=== PATIENT | male | born 1945 | race Caucasian/White ===

== ENCOUNTER → 2017-08-12 | Outpatient (CLI) | payer OTHER ==
[2017-08-12 08:33] LABS: HEMATOCRIT 45.8 % (39.2-51.8); HEMOGLOBIN 15.5 g/dL (13.7-18.0); WHITE BLOOD COUNT 9.3 x10^3/uL (3.4-10)
[2017-08-12 08:49] LABS: ASPARTATE AMINO TRANSFERASE 7 U/L (15-37); BLOOD UREA NITROGEN 22 mg/dL (7-18)
== END | disposition home or self-care (01) ==
LOC: LAB 08:21
PROVIDERS: ATTEND Nurse Practitioner Family
DX: E78.5 Hyperlipidemia, unspecified (principal); E11.9 Type 2 diabetes mellitus without complications
CPT/HCPCS: 36415; 80053; 80061; 85025

== ENCOUNTER 2017-10-09 06:07 | Inpatient (IN) | payer OTHER, MEDICARE ==
[~2017-10-09] VITALS: Ht 180.3 cm; Wt 81.9 kg
[2017-10-09] MEDS ORDERED: ALBUTEROL/IPRATROPIUM 2.5MG/0.5MG, 3 ML ONE ×2 (06:26→10:06)
[2017-10-09] MEDS ORDERED: ALBUTEROL/IPRATROPIUM 2.5MG/0.5MG, 3 ML NPPB SCH (06:30)
[2017-10-09] MEDS ORDERED: SODIUM CHLORIDE FLUSH 10ML SYR IVF ONE (06:30)
[2017-10-09] MEDS ORDERED: SODIUM CHLORIDE 0.9% 1,000ML IVBOLUS ONE (06:30)
[2017-10-09] MEDS ORDERED: MAGNESIUM SULFATE PMX 2GM/50ML 50 ML IV ONE (06:30)
[2017-10-09] MEDS ORDERED: methylPREDNISolone SOD SUCC 125 MG/2 ML IVP ONE (06:30)
[2017-10-09] MEDS ORDERED: methylPREDNISolone SOD SUCC 125 MG/2 ML ONE ×2 (06:35→11:47)
[2017-10-09 06:52] LABS: BASOPHILS % (AUTO) 1 % (0-1); EOSINOPHILS # (AUTO) 0.78 x10^3/uL (0-0.4); EOSINOPHILS % (AUTO) 8 % (1-7); LYMPHOCYTES # (AUTO) 2.85 x10^3/uL (1-3.4); LYMPHOCYTES % (AUTO) 28 % (22-44); MD NO; MEAN CORPUSCULAR HEMOGLOBIN 32.5 pg (27.5-34.5); MEAN CORPUSCULAR HGB CONC 33.5 g/dL (33.2-36.2); MEAN PLATELET VOLUME 8.2 fL (7.4-10.4); MONOCYTES % (AUTO) 12 % (2-9); NEUTROPHILS % (AUTO) 51 % (42-75); PLATELET COUNT 316 x10^3/uL (130-400); RED BLOOD COUNT 4.87 x10^6/uL (4.38-5.82); RED CELL DISTRIBUTION WIDTH 14.6 % (9.4-14.8)
[2017-10-09 07:05] LABS: ALBUMIN 3.7 g/dL (3.4-5.0); ANION GAP 8 mmol/L (5-15); CALCIUM 8.2 mg/dL (8.5-10.1); CHLORIDE 109 mmol/L (98-107)
[2017-10-09 07:13] LABS: ALANINE AMINOTRANSFERASE 17 U/L (12-78); ALKALINE PHOSPHATASE 99 U/L (45-117); BILIRUBIN,TOTAL 0.5 mg/dL (0.2-1.0); CREATININE 1.01 mg/dL (0.7-1.3); TOTAL PROTEIN 7.7 g/dL (6.4-8.2); TROPONIN I < 0.015 ng/mL (0.000-0.045)
[2017-10-09] MEDS ORDERED: SITA1TAB5 PO (07:58)
[2017-10-09] MEDS ORDERED: LOSA25TA5 PO (07:58)
[2017-10-09] MEDS ORDERED: TIOT4MIS3 INH (07:58)
[2017-10-09] MEDS ORDERED: CHOL100011 PO (07:58)
[2017-10-09] MEDS ORDERED: BRIM5DRO2 EACHEYE (07:59)
[2017-10-09] MEDS ORDERED: SODIUM CHLORIDE 0.9% 1,000 ML IV SCH (10:18)
[2017-10-09] MEDS ORDERED: DOCUSATE 100 MG CAPSULE PO PRN (10:30)
[2017-10-09] MEDS ORDERED: ONDANSETRON 2MG/ML, 2ML IVPush PRN (10:30)
[2017-10-09] MEDS ORDERED: BISACODYL 10 MG SUPP PR PRN (10:30)
[2017-10-09] MEDS ORDERED: ONDANSETRON ODT 4 MG PO PRN (10:30)
[2017-10-09] MEDS ORDERED: DEXTROSE 4 GM TAB.CHEW PO PRN (10:30)
[2017-10-09] MEDS ORDERED: DEXTROSE 50%, 50ML SYRINGE IVPush PRN (10:30)
[2017-10-09] MEDS ORDERED: IBUPROFEN 200 MG TABLET PO PRN (10:30)
[2017-10-09] MEDS ORDERED: GLUCAGON 1 MG IM PRN (10:30)
[2017-10-09] MEDS ORDERED: POLYETHYLENE GLYCOL 17 GM PACKET PO PRN (10:30)
[2017-10-09] MEDS ORDERED: GUAIFENESIN/DM 200-20MG, 10ML UDC PO PRN (10:30)
[2017-10-09] MEDS: INSULIN ASPART 100 UNITS/ML, PEN SQ-INSULIN SCH ×3 (11:00→20:21)
[2017-10-09] MEDS ORDERED: FAMOTIDINE 20 MG/2 ML ONE (11:48)
[2017-10-09] MEDS ORDERED: ENOXAPARIN 40 MG/0.4 ML ONE (11:48)
[2017-10-09] MEDS: methylPREDNISolone SOD SUCC 125 MG/2 ML IVPush SCH ×3 (11:53→22:31)
[2017-10-09] MEDS: ENOXAPARIN 40 MG/0.4 ML SQ SCH (11:53)
[2017-10-09] MEDS: FAMOTIDINE 20 MG/2 ML IVPush SCH ×2 (11:53→20:20)
[2017-10-09 13:03] VITALS: BP 114/69
[2017-10-09 14:00] VITALS: BP 114/84
[2017-10-09] MEDS: ALBUTEROL/IPRATROPIUM 2.5MG/0.5MG, 3 ML NPPB SCH ×2 (15:00→19:32)
[2017-10-09] MEDS: GUAIFENESIN 200 MG TABLET PO SCH ×3 (15:07→20:20)
[2017-10-09] MEDS: BENZONATATE 100 MG CAPSULE PO SCH ×2 (17:56→20:20)
[2017-10-09 20:20] VITALS: BP 102/58
[2017-10-09] MEDS: SODIUM CHLORIDE FLUSH 10ML SYR IVF SCH (20:20)
[2017-10-09] MEDS ORDERED: DIPHENHYDRAMINE 25 MG CAPSULE PO PRN (21:00)
[2017-10-10 01:13] VITALS: BP 100/53
[2017-10-10] MEDS: methylPREDNISolone SOD SUCC 125 MG/2 ML IVPush SCH ×4 (03:57→22:36)
[2017-10-10 05:52] LABS: ANION GAP 8 mmol/L (5-15); CALCIUM 8.4 mg/dL (8.5-10.1); CHLORIDE 108 mmol/L (98-107); CREATININE 0.77 mg/dL (0.7-1.3)
[2017-10-10] MEDS: GUAIFENESIN 200 MG TABLET PO SCH ×4 (05:57→20:07)
[2017-10-10 06:13] LABS: MEAN CORPUSCULAR HEMOGLOBIN 32.2 pg (27.5-34.5); MEAN CORPUSCULAR HGB CONC 33.1 g/dL (33.2-36.2); MEAN CORPUSCULAR VOLUME 97.2 fL (81-97); MEAN PLATELET VOLUME 8.3 fL (7.4-10.4); PLATELET COUNT 318 x10^3/uL (130-400); RED BLOOD COUNT 4.34 x10^6/uL (4.38-5.82); RED CELL DISTRIBUTION WIDTH 14.6 % (9.4-14.8)
[2017-10-10 06:35] LABS: BASOPHILS % (AUTO) 0 % (0-1); EOSINOPHILS % (AUTO) 0 % (1-7); LYMPHOCYTES # (AUTO) 1.08 x10^3/uL (1-3.4); LYMPHOCYTES % (AUTO) 6 % (22-44); MD SCAN; MONOCYTES # (AUTO) 0.57 x10^3/uL (0.2-0.8); MONOCYTES % (AUTO) 3 % (2-9); NEUTROPHILS # (AUTO) 17.06 x10^3/uL (1.8-6.8); NEUTROPHILS % (AUTO) 91 % (42-75)
[2017-10-10] MEDS: ALBUTEROL/IPRATROPIUM 2.5MG/0.5MG, 3 ML NPPB SCH ×4 (07:50→19:31)
[2017-10-10] MEDS: INSULIN ASPART 100 UNITS/ML, PEN SQ-INSULIN SCH ×4 (07:57→20:07)
[2017-10-10] MEDS: LOSARTAN 25MG TABLET PO SCH (07:57)
[2017-10-10] MEDS: FAMOTIDINE 20 MG/2 ML IVPush SCH (07:57)
[2017-10-10] MEDS: BENZONATATE 100 MG CAPSULE PO SCH ×3 (07:57→20:07)
[2017-10-10] MEDS: SODIUM CHLORIDE FLUSH 10ML SYR IVF SCH ×2 (07:58→20:07)
[2017-10-10 08:30] VITALS: BP 115/58
[2017-10-10] MEDS: ENOXAPARIN 40 MG/0.4 ML SQ SCH (11:16)
[2017-10-10 14:50] LABS: RAPID INFLUENZA A Negative (Negative); RAPID INFLUENZA B Negative (Negative)
[2017-10-10 15:17] VITALS: BP 109/54
[2017-10-10 19:58] VITALS: BP 111/64
[2017-10-10] MEDS: FAMOTIDINE 20 MG TABLET PO SCH (20:07)
[2017-10-11 00:08] LABS: HEMOGLOBIN A1C 6.7 % (4.2-6.3)
[2017-10-11 00:11] VITALS: BP 125/74
[2017-10-11] MEDS: methylPREDNISolone SOD SUCC 125 MG/2 ML IVPush SCH ×2 (04:30→10:29)
[2017-10-11] MEDS: GUAIFENESIN 200 MG TABLET PO SCH ×4 (05:44→21:13)
[2017-10-11] MEDS: ALBUTEROL/IPRATROPIUM 2.5MG/0.5MG, 3 ML NPPB SCH (07:45)
[2017-10-11] MEDS: BENZONATATE 100 MG CAPSULE PO SCH ×3 (08:07→21:13)
[2017-10-11] MEDS: FAMOTIDINE 20 MG TABLET PO SCH ×2 (08:07→21:13)
[2017-10-11] MEDS: SODIUM CHLORIDE FLUSH 10ML SYR IVF SCH ×2 (08:07→21:13)
[2017-10-11] MEDS: LOSARTAN 25MG TABLET PO SCH (08:07)
[2017-10-11] MEDS: INSULIN ASPART 100 UNITS/ML, PEN SQ-INSULIN SCH ×4 (08:08→21:14)
[2017-10-11 08:29] LABS: MEAN CORPUSCULAR HEMOGLOBIN 32.4 pg (27.5-34.5); MEAN CORPUSCULAR HGB CONC 33.7 g/dL (33.2-36.2); MEAN CORPUSCULAR VOLUME 96.1 fL (81-97); MEAN PLATELET VOLUME 7.9 fL (7.4-10.4); PLATELET COUNT 336 x10^3/uL (130-400); RED BLOOD COUNT 4.76 x10^6/uL (4.38-5.82); RED CELL DISTRIBUTION WIDTH 14.6 % (9.4-14.8)
[2017-10-11 08:46] LABS: MD YES
[2017-10-11 08:47] LABS: BAND#(MANUAL) 1.37 x10^3/uL; BANDS%(MANUAL) 5 % (0-7); LYMPH#(MANUAL) 0.82 x10^3/uL (1-3.4); LYMPHS% (MANUAL) 3 % (22-44); MONOS#(MANUAL) 0.55 x10^3/uL (0.3-2.7); MONOS% (MANUAL) 2 % (2-9); SEG#(MANUAL) 24.57 x10^3/uL (1.8-6.8); SEGS% (MANUAL) 90 % (42-75)
[2017-10-11 08:48] LABS: <PLATELET ESTIMATE> ADEQUATE; <PLT MORPHOLOGY> NORMAL PLT MORPH; <RBC MORPHOLOGY> NORMAL
[2017-10-11 09:16] VITALS: BP 145/68
[2017-10-11] MEDS ORDERED: OMNIPAQUE 350 MG/ML, 100ML BOTTLE ONE (10:19)
[2017-10-11] MEDS: ENOXAPARIN 40 MG/0.4 ML SQ SCH (10:29)
[2017-10-11] MEDS ORDERED: ALBUTEROL/IPRATROPIUM 2.5MG/0.5MG, 3 ML ONE (11:03)
[2017-10-11 14:00] VITALS: BP 131/78
[2017-10-11 19:22] VITALS: BP 132/57
[2017-10-11] MEDS: DOXYCYCLINE 100MG TABLET PO SCH (21:13)
[2017-10-11] MEDS: CEFDINIR 300 MG CAPSULE PO SCH (21:13)
[2017-10-11] MEDS: methylPREDNISolone SOD SUCC 40 MG/ML IVPush SCH (21:13)
[2017-10-12 02:00] VITALS: BP 140/70
[2017-10-12 05:13] LABS: BASOPHILS # (AUTO) 0.01 x10^3/uL (0-0.1); BASOPHILS % (AUTO) 0 % (0-1); EOSINOPHILS % (AUTO) 0 % (1-7); LYMPHOCYTES % (AUTO) 5 % (22-44); MD NO; MEAN CORPUSCULAR HEMOGLOBIN 32.5 pg (27.5-34.5); MEAN CORPUSCULAR HGB CONC 33.5 g/dL (33.2-36.2); MEAN CORPUSCULAR VOLUME 97.1 fL (81-97); MONOCYTES # (AUTO) 0.92 x10^3/uL (0.2-0.8); MONOCYTES % (AUTO) 5 % (2-9); NEUTROPHILS # (AUTO) 15.36 x10^3/uL (1.8-6.8); NEUTROPHILS % (AUTO) 89 % (42-75); PLATELET COUNT 281 x10^3/uL (130-400); RED BLOOD COUNT 4.21 x10^6/uL (4.38-5.82); RED CELL DISTRIBUTION WIDTH 14.6 % (9.4-14.8)
[2017-10-12] MEDS: GUAIFENESIN 200 MG TABLET PO SCH (05:50)
[2017-10-12] MEDS ORDERED: ALBUTEROL/IPRATROPIUM 2.5MG/0.5MG, 3 ML NPPB PRN (07:00)
[2017-10-12] MEDS: INSULIN ASPART 100 UNITS/ML, PEN SQ-INSULIN SCH (07:00)
[2017-10-12] MEDS ORDERED: ALBU90AE PO (07:44)
[2017-10-12] MEDS ORDERED: CEFD300C37 PO (07:44)
[2017-10-12] MEDS ORDERED: DOXY100T PO (07:44)
[2017-10-12 07:46] VITALS: BP 151/80
[2017-10-12] MEDS: DOXYCYCLINE 100MG TABLET PO SCH (08:01)
[2017-10-12] MEDS: LOSARTAN 25MG TABLET PO SCH (08:01)
[2017-10-12] MEDS: FAMOTIDINE 20 MG TABLET PO SCH (08:01)
[2017-10-12] MEDS: CEFDINIR 300 MG CAPSULE PO SCH (08:01)
[2017-10-12] MEDS: methylPREDNISolone SOD SUCC 40 MG/ML IVPush SCH (08:01)
[2017-10-12] MEDS: BENZONATATE 100 MG CAPSULE PO SCH (08:01)
[2017-10-12] MEDS: SODIUM CHLORIDE FLUSH 10ML SYR IVF SCH (08:02)
== END 2017-10-12 09:56 | disposition home or self-care (01) | DRG 189 ==
LOC: ED 07:14 → EDIP 08:33 → 4WST 12:46 → DCLOUNGE 10-12 09:45
PROVIDERS: ADMIT Hospitalist; ATTEND Hospitalist
DX: J96.01 Acute respiratory failure with hypoxia (principal); E11.65 Type 2 diabetes mellitus with hyperglycemia; E87.2 Acidosis; B95.61 Methicillin susceptible Staphylococcus aureus infection as the cause of diseases classified elsewhere; J44.1 Chronic obstructive pulmonary disease with (acute) exacerbation; D72.829 Elevated white blood cell count, unspecified; F17.200 Nicotine dependence, unspecified, uncomplicated; H40.9 Unspecified glaucoma; F41.9 Anxiety disorder, unspecified; B95.1 Streptococcus, group B, as the cause of diseases classified elsewhere; B96.89 Other specified bacterial agents as the cause of diseases classified elsewhere; Z66 Do not resuscitate; Z82.5 Family history of asthma and other chronic lower respiratory diseases; Z79.84 Long term (current) use of oral hypoglycemic drugs; Z91.040 Latex allergy status
CPT/HCPCS: 36415; 71045; 71046; 71275; 80048; 80053; 82330; 82962; 83036; 83735; 83880; 84484; 85025; 87040; 87070; 87077; 87186; 87205; 87400; 93005; 94640; J1650; J1815; J7620; Q9967; J2920; J2930; J3475; J7030; S0028

== ENCOUNTER → 2018-02-18 | Outpatient (CLI) | payer OTHER ==
[~2018-02-18] MED LIST: ALBU90AE PO; BRIM5DRO2 EACHEYE; CEFD300C37 PO; CHOL100011 PO; DOXY100T PO; LOSA25TA5 PO; SITA1TAB5 PO; TIOT4MIS3 INH
[2018-02-18 09:25] LABS: BASOPHILS # (AUTO) 0.06 x10^3/uL (0-0.1); BASOPHILS % (AUTO) 1 % (0-1); EOSINOPHILS # (AUTO) 0.61 x10^3/uL (0-0.4); EOSINOPHILS % (AUTO) 6 % (1-7); LYMPHOCYTES # (AUTO) 2.29 x10^3/uL (1-3.4); LYMPHOCYTES % (AUTO) 23 % (22-44); MD NO; MEAN CORPUSCULAR HEMOGLOBIN 32.2 pg (27.5-34.5); MEAN CORPUSCULAR HGB CONC 33.9 g/dL (33.2-36.2); MEAN PLATELET VOLUME 7.7 fL (7.4-10.4); MONOCYTES # (AUTO) 1.12 x10^3/uL (0.2-0.8); MONOCYTES % (AUTO) 11 % (2-9); NEUTROPHILS # (AUTO) 5.83 x10^3/uL (1.8-6.8); NEUTROPHILS % (AUTO) 59 % (42-75); PLATELET COUNT 313 x10^3/uL (130-400); RED BLOOD COUNT 4.73 x10^6/uL (4.38-5.82); RED CELL DISTRIBUTION WIDTH 13.7 % (9.4-14.8)
[2018-02-18 09:37] LABS: ALANINE AMINOTRANSFERASE 23 U/L (12-78); ALBUMIN 3.6 g/dL (3.4-5.0); ANION GAP 6 mmol/L (5-15); CALCIUM 8.3 mg/dL (8.5-10.1); CHLORIDE 109 mmol/L (98-107); CREATININE 0.89 mg/dL (0.7-1.3)
[2018-02-18 09:42] LABS: ALKALINE PHOSPHATASE 81 U/L (45-117); BILIRUBIN,TOTAL 0.3 mg/dL (0.2-1.0); TOTAL PROTEIN 7.2 g/dL (6.4-8.2)
== END | disposition home or self-care (01) ==
LOC: LAB 09:10
PROVIDERS: ATTEND Nurse Practitioner Family
DX: J44.1 Chronic obstructive pulmonary disease with (acute) exacerbation (principal)
CPT/HCPCS: 36415; 71046; 80053; 83880; 85025

== ENCOUNTER 2018-04-14 21:02 | Emergency (ER) | payer OTHER ==
[~2018-04-14] VITALS: Ht 180.3 cm; Wt 79.0 kg
[2018-04-14] MEDS ORDERED: methylPREDNISolone SOD SUCC 125 MG/2 ML ONE (21:34)
[2018-04-14] MEDS ORDERED: SODIUM CHLORIDE 0.9% 1,000 ML IV ONE (21:37)
[2018-04-14] MEDS ORDERED: SODIUM CHLORIDE FLUSH 10ML SYR IVF ONE (22:00)
[2018-04-14] MEDS ORDERED: methylPREDNISolone SOD SUCC 125 MG/2 ML IVP ONE (22:00)
[2018-04-14 22:07] LABS: BASOPHILS # (AUTO) 0.08 x10^3/uL (0-0.1); BASOPHILS % (AUTO) 1 % (0-1); EOSINOPHILS # (AUTO) 0.91 x10^3/uL (0-0.4); EOSINOPHILS % (AUTO) 8 % (1-7); LYMPHOCYTES # (AUTO) 2.77 x10^3/uL (1-3.4); LYMPHOCYTES % (AUTO) 23 % (22-44); MD NO; MEAN CORPUSCULAR HEMOGLOBIN 32.3 pg (27.5-34.5); MEAN CORPUSCULAR HGB CONC 33.7 g/dL (33.2-36.2); MEAN CORPUSCULAR VOLUME 95.9 fL (81-97); MEAN PLATELET VOLUME 8.1 fL (7.4-10.4); MONOCYTES # (AUTO) 1.29 x10^3/uL (0.2-0.8); MONOCYTES % (AUTO) 11 % (2-9); NEUTROPHILS % (AUTO) 58 % (42-75); PLATELET COUNT 309 x10^3/uL (130-400); RED CELL DISTRIBUTION WIDTH 14.9 % (9.4-14.8)
[2018-04-14 22:18] LABS: ALBUMIN 3.9 g/dL (3.4-5.0); ANION GAP 7 mmol/L (5-15); CALCIUM 8.8 mg/dL (8.5-10.1); CHLORIDE 111 mmol/L (98-107); CREATININE 1.32 mg/dL (0.7-1.3)
[2018-04-14 22:22] LABS: TROPONIN I < 0.015 ng/mL (0.000-0.045)
[2018-04-14 22:30] VITALS: BP 113/80
[2018-04-14] MEDS ORDERED: BENZONATATE 100 MG CAPSULE ONE (22:41)
[2018-04-14] MEDS ORDERED: BENZONATATE 100 MG CAPSULE PO ONE (23:00)
== END 2018-04-14 23:13 | disposition home or self-care (01) ==
LOC: ED 22:45
DX: J44.1 Chronic obstructive pulmonary disease with (acute) exacerbation (principal)
CPT/HCPCS: 36415; 71045; 80048; 82040; 83880; 84484; 85025; 93005; 94640; 96374; 99285; J2930; J7030

== ENCOUNTER 2018-05-14 17:38 | Inpatient (IN) | payer OTHER, MEDICARE ==
[~2018-05-14] VITALS: Ht 180.3 cm; Wt 78.4 kg
[2018-05-14 18:20] LABS: MEAN CORPUSCULAR HEMOGLOBIN 33.4 pg (27.5-34.5); MEAN CORPUSCULAR HGB CONC 34.9 g/dL (33.2-36.2); MEAN CORPUSCULAR VOLUME 95.8 fL (81-97); MEAN PLATELET VOLUME 9.1 fL (7.4-10.4); PLATELET COUNT 320 x10^3/uL (130-400); RED BLOOD COUNT 4.23 x10^6/uL (4.38-5.82); RED CELL DISTRIBUTION WIDTH 15.7 % (9.4-14.8)
[2018-05-14 18:27] LABS: MD YES
[2018-05-14 18:30] LABS: ALBUMIN 3.2 g/dL (3.4-5.0); ANION GAP 11 mmol/L (5-15); CALCIUM 8.9 mg/dL (8.5-10.1); CHLORIDE 105 mmol/L (98-107)
[2018-05-14 18:35] LABS: ALANINE AMINOTRANSFERASE 371 U/L (12-78); ALKALINE PHOSPHATASE 456 U/L (45-117); BILIRUBIN,TOTAL 11.8 mg/dL (0.2-1.0); CREATININE 1.51 mg/dL (0.7-1.3); TOTAL PROTEIN 7.2 g/dL (6.4-8.2); TROPONIN I < 0.015 ng/mL (0.000-0.045)
[2018-05-14 18:48] LABS: BASOS#(MANUAL) 0.09 x10^3/uL (0-0.1); BASOS% (MANUAL) 1 % (0-1); EOS#(MANUAL) 0.09 x10^3/uL (0.0-0.4); EOS% (MANUAL) 1 % (1-7); LYMPH#(MANUAL) 1.51 x10^3/uL (1-3.4); LYMPHS% (MANUAL) 17 % (22-44); MONOS#(MANUAL) 1.07 x10^3/uL (0.3-2.7); MONOS% (MANUAL) 12 % (2-9); SEG#(MANUAL) 6.14 x10^3/uL (1.8-6.8); SEGS% (MANUAL) 69 % (42-75)
[2018-05-14 18:51] LABS: <PLATELET ESTIMATE> ADEQUATE; <PLT MORPHOLOGY> NORMAL PLT MORPH; ANISOCYTOSIS 1+; TARGET CELLS 1+
[2018-05-14] MEDS ORDERED: SODIUM CHLORIDE FLUSH 10ML SYR IVF ONE (19:00)
[2018-05-14] MEDS ORDERED: SODIUM CHLORIDE 0.9% 1,000ML IVBOLUS ONE (19:00)
[2018-05-14 19:10] LABS: INTERNATIONAL NORMALIZED RATIO 0.97 (0.93-1.1)
[2018-05-14 19:33] LABS: CULTURE INDICATED? YES; MICROSCOPIC INDICATED
[2018-05-14] MEDS ORDERED: GLYC10.7 INH (20:32)
[2018-05-14] MEDS: INSULIN LISPRO 100 UNITS/ML, PEN SQ-INSULIN SCH (21:00)
[2018-05-14 21:08] LABS: AMPHETAMINE SCREEN, URINE Negative (Negative); BARBITURATE SCREEN, URINE Negative (Negative); BENZODIAZEPINE SCREEN, URINE Negative (Negative); CANNABINOID SCREEN, URINE Negative (Negative); COCAINE SCREEN, URINE Negative (Negative); METHADONE SCREEN, URINE Negative (Negative); OPIATE SCREEN, URINE Negative (Negative)
[2018-05-14] MEDS ORDERED: ONDANSETRON 2MG/ML, 2ML IVPush PRN (21:30)
[2018-05-14] MEDS ORDERED: OXYcodone IR 5MG TABLET PO PRN (21:30)
[2018-05-14] MEDS ORDERED: DIAZEPAM 5 MG TABLET PO PRN (21:30)
[2018-05-14] MEDS ORDERED: hydrALAzine 20 MG/ML, 1ML IVPush PRN (21:30)
[2018-05-14] MEDS ORDERED: CEFTRIAXONE 1,000 MG in DEXTROSE 5% 50 ML IV SCH (21:30)
[2018-05-14] MEDS ORDERED: LABETALOL 5MG/ML, 20ML IVPush PRN (21:30)
[2018-05-14] MEDS ORDERED: ONDANSETRON ODT 4 MG PO PRN (21:30)
[2018-05-14 21:36] LABS: HEMOGLOBIN A1C 6.9 % (4.2-6.3)
[2018-05-14 21:51] VITALS: BP 126/62
[2018-05-14] MEDS: ALBUTEROL/IPRATROPIUM 2.5MG/0.5MG, 3 ML NPPB SCH (22:49)
[2018-05-15] MEDS: D5%-0.45NACL+KCL 20MEQ 1,000 ML IV SCH ×2 (02:21→12:07)
[2018-05-15] MEDS: CEFTRIAXONE 1,000 MG in SODIUM CHLORIDE 0.9% 50 ML IV SCH (02:21)
[2018-05-15] MEDS: ENOXAPARIN 40 MG/0.4 ML SQ SCH (02:21)
[2018-05-15 02:22] VITALS: BP 131/68
[2018-05-15] MEDS: ALBUTEROL/IPRATROPIUM 2.5MG/0.5MG, 3 ML NPPB SCH ×6 (03:14→23:06)
[2018-05-15 05:19] LABS: MEAN CORPUSCULAR HEMOGLOBIN 33.4 pg (27.5-34.5); MEAN CORPUSCULAR HGB CONC 34.6 g/dL (33.2-36.2); MEAN CORPUSCULAR VOLUME 96.5 fL (81-97); MEAN PLATELET VOLUME 9.6 fL (7.4-10.4); PLATELET COUNT 283 x10^3/uL (130-400); RED BLOOD COUNT 3.94 x10^6/uL (4.38-5.82); RED CELL DISTRIBUTION WIDTH 16.3 % (9.4-14.8)
[2018-05-15 05:30] LABS: ALBUMIN 2.9 g/dL (3.4-5.0); CALCIUM 8.3 mg/dL (8.5-10.1); CHLORIDE 106 mmol/L (98-107)
[2018-05-15 05:34] LABS: ALANINE AMINOTRANSFERASE 323 U/L (12-78); ALKALINE PHOSPHATASE 440 U/L (45-117); ANION GAP 11 mmol/L (5-15); BILIRUBIN,TOTAL 11.8 mg/dL (0.2-1.0); CREATININE 0.98 mg/dL (0.7-1.3); TOTAL PROTEIN 6.5 g/dL (6.4-8.2)
[2018-05-15 06:20] LABS: MD YES
[2018-05-15 06:23] LABS: ANISOCYTOSIS 1+; BAND#(MANUAL) 0.27 x10^3/uL; BANDS%(MANUAL) 3 % (0-7); BASOS#(MANUAL) 0.27 x10^3/uL (0-0.1); BASOS% (MANUAL) 3 % (0-1); EOS#(MANUAL) 0.27 x10^3/uL (0.0-0.4); EOS% (MANUAL) 3 % (1-7); HYPOCHROMIA 1+; LYMPH#(MANUAL) 1.62 x10^3/uL (1-3.4); LYMPHS% (MANUAL) 18 % (22-44); MONOS% (MANUAL) 10 % (2-9); SEG#(MANUAL) 5.67 x10^3/uL (1.8-6.8); SEGS% (MANUAL) 63 % (42-75); TARGET CELLS 1+
[2018-05-15 06:25] LABS: <PLATELET ESTIMATE> ADEQUATE; <PLT MORPHOLOGY> NORMAL PLT MORPH; TEAR DROPS 1+
[2018-05-15] MEDS: CHOLECALCIFEROL 1,000 UNIT TABLET PO SCH (08:39)
[2018-05-15 09:02] VITALS: BP 122/71
[2018-05-15] MEDS: INSULIN LISPRO 100 UNITS/ML, PEN SQ-INSULIN SCH ×4 (09:14→20:02)
[2018-05-15] MEDS ORDERED: POTASSIUM CHLORIDE 20 MEQ TAB.ER.PRT PO ONE (12:00)
[2018-05-15 13:25] VITALS: BP 132/69
[2018-05-15 19:10] VITALS: BP 155/76
[2018-05-15] MEDS ORDERED: ALBUTEROL/IPRATROPIUM 2.5MG/0.5MG, 3 ML NPPB PRN (23:30)
[2018-05-16] MEDS: ENOXAPARIN 40 MG/0.4 ML SQ SCH (02:50)
[2018-05-16] MEDS: CEFTRIAXONE 1,000 MG in SODIUM CHLORIDE 0.9% 50 ML IV SCH (02:50)
[2018-05-16 03:41] VITALS: BP 134/76
[2018-05-16] MEDS: D5%-0.45NACL+KCL 20MEQ 1,000 ML IV SCH (06:03)
[2018-05-16] MEDS: INSULIN LISPRO 100 UNITS/ML, PEN SQ-INSULIN SCH ×4 (07:00→21:35)
[2018-05-16] MEDS: ALBUTEROL/IPRATROPIUM 2.5MG/0.5MG, 3 ML NPPB SCH ×4 (07:11→19:58)
[2018-05-16 08:15] VITALS: BP 109/67
[2018-05-16] MEDS: TIMOLOL GFS 0.5% EACHEYE SCH (08:33)
[2018-05-16 08:34] LABS: ANION GAP 9 mmol/L (5-15); CALCIUM 8.9 mg/dL (8.5-10.1); CHLORIDE 105 mmol/L (98-107)
[2018-05-16] MEDS: CHOLECALCIFEROL 1,000 UNIT TABLET PO SCH (08:35)
[2018-05-16 08:38] LABS: ALANINE AMINOTRANSFERASE 335 U/L (12-78); ALKALINE PHOSPHATASE 478 U/L (45-117); BILIRUBIN,TOTAL 11.9 mg/dL (0.2-1.0); CREATININE 0.92 mg/dL (0.7-1.3); TOTAL PROTEIN 6.9 g/dL (6.4-8.2)
[2018-05-16] MEDS ORDERED: TIMOLOL GFS 0.5% EACHEYE SCH (09:00)
[2018-05-16] MEDS ORDERED: LATANOPROST OPTHALMIC EACHEYE SCH (09:00)
[2018-05-16] MEDS ORDERED: CHOLESTYRAMINE LIGHT 4GM PACKET ONE (11:56)
[2018-05-16] MEDS: CHOLESTYRAMINE LIGHT 4GM PACKET PO SCH (11:59)
[2018-05-16] MEDS: SODIUM CHLORIDE 0.9% 1,000 ML IV SCH (12:36)
[2018-05-16 14:00] VITALS: BP 128/73
[2018-05-16] MEDS ORDERED: LOSA25TA5 PO (18:41)
[2018-05-16 19:26] VITALS: BP 138/71
[2018-05-16] MEDS: LATANOPROST OPTHALMIC EACHEYE SCH (21:35)
[2018-05-17] MEDS: SODIUM CHLORIDE 0.9% 1,000 ML IV SCH ×2 (01:52→21:15)
[2018-05-17] MEDS: CEFTRIAXONE 1,000 MG in SODIUM CHLORIDE 0.9% 50 ML IV SCH (01:53)
[2018-05-17 02:40] VITALS: BP 122/74
[2018-05-17] MEDS: ALBUTEROL/IPRATROPIUM 2.5MG/0.5MG, 3 ML NPPB SCH ×5 (03:15→19:36)
[2018-05-17 05:34] LABS: ALBUMIN 2.9 g/dL (3.4-5.0); ANION GAP 8 mmol/L (5-15); CALCIUM 8.7 mg/dL (8.5-10.1); CHLORIDE 105 mmol/L (98-107)
[2018-05-17 05:39] LABS: ALANINE AMINOTRANSFERASE 314 U/L (12-78); ALKALINE PHOSPHATASE 487 U/L (45-117); BILIRUBIN,TOTAL 12.8 mg/dL (0.2-1.0); CREATININE 0.92 mg/dL (0.7-1.3); TOTAL PROTEIN 6.5 g/dL (6.4-8.2)
[2018-05-17 05:40] LABS: MEAN CORPUSCULAR HEMOGLOBIN 33.5 pg (27.5-34.5); MEAN CORPUSCULAR HGB CONC 34.1 g/dL (33.2-36.2); MEAN CORPUSCULAR VOLUME 98.1 fL (81-97); MEAN PLATELET VOLUME 9.7 fL (7.4-10.4); PLATELET COUNT 322 x10^3/uL (130-400); RED BLOOD COUNT 3.78 x10^6/uL (4.38-5.82)
[2018-05-17 06:07] LABS: MD YES
[2018-05-17 06:10] LABS: BAND#(MANUAL) 0.33 x10^3/uL; BANDS%(MANUAL) 4 % (0-7); BASOS#(MANUAL) 0.25 x10^3/uL (0-0.1); BASOS% (MANUAL) 3 % (0-1); EOS#(MANUAL) 0.66 x10^3/uL (0.0-0.4); EOS% (MANUAL) 8 % (1-7); LYMPH#(MANUAL) 1.08 x10^3/uL (1-3.4); LYMPHS% (MANUAL) 13 % (22-44); MONOS#(MANUAL) 0.83 x10^3/uL (0.3-2.7); MONOS% (MANUAL) 10 % (2-9); SEG#(MANUAL) 5.15 x10^3/uL (1.8-6.8); SEGS% (MANUAL) 62 % (42-75)
[2018-05-17 06:15] LABS: <PLATELET ESTIMATE> ADEQUATE; <PLT MORPHOLOGY> NORMAL PLT MORPH; ANISOCYTOSIS 1+; TARGET CELLS 1+
[2018-05-17 06:54] VITALS: BP 130/69
[2018-05-17] MEDS: INSULIN LISPRO 100 UNITS/ML, PEN SQ-INSULIN SCH ×4 (07:00→21:15)
[2018-05-17 07:41] LABS: INTERNATIONAL NORMALIZED RATIO 0.97 (0.93-1.1)
[2018-05-17] MEDS: TIMOLOL GFS 0.5% EACHEYE SCH (08:33)
[2018-05-17] MEDS: LOSARTAN 25MG TABLET PO SCH (09:00)
[2018-05-17] MEDS ORDERED: LIDOCAINE-MPF 2%, 2ML ONE (10:14)
[2018-05-17] MEDS ORDERED: DIPHENOXYLATE/ATROPINE TABLET PO PRN (11:30)
[2018-05-17] MEDS: CHOLECALCIFEROL 1,000 UNIT TABLET PO SCH (11:38)
[2018-05-17] MEDS: CHOLESTYRAMINE LIGHT 4GM PACKET PO SCH (11:38)
[2018-05-17 12:11] VITALS: BP 121/65
[2018-05-17 19:24] VITALS: BP 131/79
[2018-05-17] MEDS: LATANOPROST OPTHALMIC EACHEYE SCH (21:00)
[2018-05-18 01:30] VITALS: BP 153/83
[2018-05-18] MEDS: ALBUTEROL/IPRATROPIUM 2.5MG/0.5MG, 3 ML NPPB SCH ×2 (05:48→10:11)
[2018-05-18 07:15] VITALS: BP 101/60
[2018-05-18] MEDS: INSULIN LISPRO 100 UNITS/ML, PEN SQ-INSULIN SCH ×2 (07:45→11:00)
[2018-05-18] MEDS: TIMOLOL GFS 0.5% EACHEYE SCH (07:45)
[2018-05-18] MEDS: LOSARTAN 25MG TABLET PO SCH (07:46)
[2018-05-18] MEDS: CHOLESTYRAMINE LIGHT 4GM PACKET PO SCH (07:46)
[2018-05-18] MEDS: CHOLECALCIFEROL 1,000 UNIT TABLET PO SCH (07:46)
[2018-05-18 09:37] LABS: ALANINE AMINOTRANSFERASE 308 U/L (12-78); ALBUMIN 2.8 g/dL (3.4-5.0); ANION GAP 10 mmol/L (5-15); CALCIUM 8.7 mg/dL (8.5-10.1); CHLORIDE 102 mmol/L (98-107); CREATININE 0.92 mg/dL (0.7-1.3)
[2018-05-18 09:39] LABS: ALKALINE PHOSPHATASE 507 U/L (45-117); BILIRUBIN,TOTAL 13.3 mg/dL (0.2-1.0); TOTAL PROTEIN 6.6 g/dL (6.4-8.2)
[2018-05-18] MEDS ORDERED: INSU100I11 SQ-INSULIN (11:21)
[2018-05-18] MEDS ORDERED: CHOL239. PO (11:21)
[2018-05-18 14:47] LABS: ANA SCREEN NEGATIVE (Negative)
== END 2018-05-18 12:16 | disposition home or self-care (01) | DRG 441 ==
LOC: ED 20:45 → 3NE 21:30
PROVIDERS: ADMIT Internal Medicine; ATTEND Internal Medicine
PROC: 0FB03ZX Excision of Liver, Percutaneous Approach, Diagnostic (ICD-10-PCS; principal; 2018-05-17)
DX: K75.89 Other specified inflammatory liver diseases (principal); N17.0 Acute kidney failure with tubular necrosis; E87.2 Acidosis; E87.1 Hypo-osmolality and hyponatremia; E44.1 Mild protein-calorie malnutrition; Q45.3 Other congenital malformations of pancreas and pancreatic duct; N28.1 Cyst of kidney, acquired; J44.9 Chronic obstructive pulmonary disease, unspecified; E86.0 Dehydration; R82.71 Bacteriuria; E11.65 Type 2 diabetes mellitus with hyperglycemia; Z66 Do not resuscitate; L29.9 Pruritus, unspecified; D72.1 Eosinophilia; K83.9 Disease of biliary tract, unspecified; T50.905A Adverse effect of unspecified drugs, medicaments and biological substances, initial encounter; Z87.891 Personal history of nicotine dependence; Z79.84 Long term (current) use of oral hypoglycemic drugs; Z82.5 Family history of asthma and other chronic lower respiratory diseases; Z91.040 Latex allergy status; Z87.09 Personal history of other diseases of the respiratory system; Y92.89 Other specified places as the place of occurrence of the external cause; Z68.24 Body mass index [BMI] 24.0-24.9, adult
CPT/HCPCS: 36415; 99285; J7620; 47000; 71045; 74181; 76700; 76942; 78226; 80053; 80074; 80307; 81001; 82248; 82728; 82784; 82962; 82977; 83036; 83516; 83540; 83550; 83690; 83735; 84100; 84466; 84484; 85025; 85610; 86038; 86255; 87086; 88307; 88313; 93005; 94640; J0696; J1650; J2250; J3010; J3490; A9537; C9898; J1815; J3480; J7030

== ENCOUNTER → 2018-05-20 | Outpatient (CLI) | payer OTHER ==
[~2018-05-20] MED LIST changes: +CHOL239. PO; +FENTANYL PF 100 MCG/2ML ONE; +FLUMAZENIL 0.1 MG/1 ML, 5ML ONE; +GLYC10.7 INH; +INSU100I11 SQ-INSULIN; +MIDAZOLAM 1 MG/ML, 5ML ONE; +NALOXONE 1 MG/ML, 2ML ONE
== END | disposition home or self-care (01) ==
LOC: CARD 12:40
PROVIDERS: ATTEND Internal Medicine Critical Care Medicine
DX: J43.2 Centrilobular emphysema (principal); E11.9 Type 2 diabetes mellitus without complications
CPT/HCPCS: 94060; 94618; 94726; 94729; J2250; J3010; J2310

== ENCOUNTER → 2018-06-25 | Outpatient (CLI) | payer OTHER ==
[~2018-06-25] MED LIST changes: -FENTANYL PF 100 MCG/2ML ONE; -FLUMAZENIL 0.1 MG/1 ML, 5ML ONE; -LOSA25TA5 PO; +LOSA25TA6 PO; -MIDAZOLAM 1 MG/ML, 5ML ONE; -NALOXONE 1 MG/ML, 2ML ONE
[2018-06-25 07:42] LABS: ALBUMIN 3.6 g/dL (3.4-5.0); BILIRUBIN, DIRECT 0.7 mg/dL (0.1-0.2)
[2018-06-25 07:44] LABS: BILIRUBIN,INDIRECT 0.2 mg/dL (0.0-2.0); BILIRUBIN,TOTAL 0.9 mg/dL (0.2-1.0); TOTAL PROTEIN 7.3 g/dL (6.4-8.2)
== END | disposition home or self-care (01) ==
LOC: LAB 07:16
PROVIDERS: ATTEND Internal Medicine Gastroenterology
DX: R94.5 Abnormal results of liver function studies (principal); R13.14 Dysphagia, pharyngoesophageal phase; E11.9 Type 2 diabetes mellitus without complications; Z87.891 Personal history of nicotine dependence
CPT/HCPCS: 36415; 80076

== ENCOUNTER 2018-06-27 12:22 | Emergency (ER) | payer OTHER ==
[~2018-06-27] VITALS: Ht 180.3 cm; Wt 76.0 kg
[2018-06-27 12:29] VITALS: BP 113/63
[2018-06-27] MEDS ORDERED: DEXAMETHASONE 4 MG/ML, 1ML IM ONE (13:00)
[2018-06-27] MEDS ORDERED: ALBUTEROL SULFATE 2.5 MG/3 ML NPPB ONE (13:00)
[2018-06-27] MEDS ORDERED: DEXAMETHASONE 4 MG/ML, 1ML ONE (13:08)
[2018-06-27] MEDS ORDERED: ALBUTEROL SULFATE 2.5 MG/3 ML ONE (13:08)
== END 2018-06-27 13:52 | disposition home or self-care (01) ==
LOC: ED 12:56
DX: J44.1 Chronic obstructive pulmonary disease with (acute) exacerbation (principal); E11.9 Type 2 diabetes mellitus without complications
CPT/HCPCS: 71045; 93005; 94640; 96372; 99284; J1100; J7613

== ENCOUNTER → 2018-07-27 | Outpatient (CLI) | payer OTHER ==
[2018-07-27 08:03] LABS: ALBUMIN 3.7 g/dL (3.4-5.0); BILIRUBIN, DIRECT 0.2 mg/dL (0.1-0.2)
[2018-07-27 08:06] LABS: BILIRUBIN,INDIRECT 0.1 mg/dL (0.0-2.0); BILIRUBIN,TOTAL 0.3 mg/dL (0.2-1.0); TOTAL PROTEIN 7.2 g/dL (6.4-8.2)
== END | disposition home or self-care (01) ==
LOC: LAB 07:31
PROVIDERS: ATTEND Internal Medicine Gastroenterology
DX: R94.5 Abnormal results of liver function studies (principal); R13.14 Dysphagia, pharyngoesophageal phase; R13.19 Other dysphagia
CPT/HCPCS: 36415; 80076

== ENCOUNTER 2018-08-26 12:24 | Emergency (ER) | payer OTHER ==
[~2018-08-26] VITALS: Ht 180.3 cm; Wt 78.3 kg
[2018-08-26 12:48] LABS: BASOPHILS # (AUTO) 0.05 x10^3/uL (0-0.1); BASOPHILS % (AUTO) 0 % (0-1); EOSINOPHILS % (AUTO) 5 % (1-7); LYMPHOCYTES # (AUTO) 2.09 x10^3/uL (1-3.4); LYMPHOCYTES % (AUTO) 17 % (22-44); MD NO; MEAN CORPUSCULAR HEMOGLOBIN 33.7 pg (27.5-34.5); MEAN CORPUSCULAR HGB CONC 33.7 g/dL (33.2-36.2); MEAN CORPUSCULAR VOLUME 99.9 fL (81-97); MEAN PLATELET VOLUME 7.9 fL (7.4-10.4); MONOCYTES # (AUTO) 1.43 x10^3/uL (0.2-0.8); MONOCYTES % (AUTO) 12 % (2-9); NEUTROPHILS # (AUTO) 8.05 x10^3/uL (1.8-6.8); NEUTROPHILS % (AUTO) 66 % (42-75); PLATELET COUNT 315 x10^3/uL (130-400); RED BLOOD COUNT 4.67 x10^6/uL (4.38-5.82); RED CELL DISTRIBUTION WIDTH 12.7 % (9.4-14.8)
[2018-08-26] MEDS ORDERED: ALBUTEROL/IPRATROPIUM 2.5MG/0.5MG, 3 ML ONE (12:51)
[2018-08-26] MEDS: ALBUTEROL/IPRATROPIUM 2.5MG/0.5MG, 3 ML NPPB SCH (12:53)
[2018-08-26 13:00] LABS: ALBUMIN 3.8 g/dL (3.4-5.0); ANION GAP 9 mmol/L (5-15); CALCIUM 8.8 mg/dL (8.5-10.1); CHLORIDE 109 mmol/L (98-107); CREATININE 1.03 mg/dL (0.7-1.3)
[2018-08-26 14:21] VITALS: BP 103/64
== END 2018-08-26 14:22 | disposition home or self-care (01) ==
LOC: ED 12:55
DX: J44.1 Chronic obstructive pulmonary disease with (acute) exacerbation (principal); J02.0 Streptococcal pharyngitis; B95.5 Unspecified streptococcus as the cause of diseases classified elsewhere; J45.909 Unspecified asthma, uncomplicated; E11.9 Type 2 diabetes mellitus without complications; Z79.899 Other long term (current) drug therapy; Z91.040 Latex allergy status
CPT/HCPCS: 36415; 71046; 80048; 82040; 83605; 85025; 93005; 94640; 99284; J7512; J7620

== ENCOUNTER → 2019-08-04 | Outpatient (CLI) | payer OTHER ==
[~2019-08-04] MED LIST changes: +LOSA25TA25 PO; -LOSA25TA6 PO
[2019-08-04 08:02] LABS: BASOPHILS # (AUTO) 0.06 x10^3/uL (0-0.1); BASOPHILS % (AUTO) 1 % (0-1); EOSINOPHILS # (AUTO) 0.39 x10^3/uL (0-0.4); EOSINOPHILS % (AUTO) 5 % (1-7); LYMPHOCYTES # (AUTO) 1.52 x10^3/uL (1-3.4); LYMPHOCYTES % (AUTO) 18 % (22-44); MD NO; MEAN CORPUSCULAR HEMOGLOBIN 32.8 pg (27.5-34.5); MEAN CORPUSCULAR HGB CONC 33.6 g/dL (33.2-36.2); MEAN CORPUSCULAR VOLUME 97.8 fL (81-97); MEAN PLATELET VOLUME 7.5 fL (7.4-10.4); MONOCYTES # (AUTO) 1.05 x10^3/uL (0.2-0.8); MONOCYTES % (AUTO) 13 % (2-9); NEUTROPHILS # (AUTO) 5.25 x10^3/uL (1.8-6.8); NEUTROPHILS % (AUTO) 64 % (42-75); PLATELET COUNT 352 x10^3/uL (130-400); RED BLOOD COUNT 4.66 x10^6/uL (4.38-5.82); RED CELL DISTRIBUTION WIDTH 14.3 % (9.4-14.8)
[2019-08-04 08:11] LABS: ALANINE AMINOTRANSFERASE 25 U/L (12-78); ALBUMIN 3.8 g/dL (3.4-5.0); ANION GAP 5 mmol/L (5-15); CALCIUM 8.9 mg/dL (8.5-10.1); CHLORIDE 110 mmol/L (98-107); CHOLESTEROL, TOTAL 159 mg/dL (140-239); CREATININE 1.11 mg/dL (0.7-1.3)
[2019-08-04 08:13] LABS: ALKALINE PHOSPHATASE 83 U/L (45-117); BILIRUBIN,TOTAL 0.4 mg/dL (0.2-1.0); CHOL/HDL RATIO 4.3; HDL CHOL % 23 % (26-37); HDL CHOLESTEROL (DIRECT) 37 mg/dL (40-60); LDL CHOLESTEROL,CALCULATED 106 mg/dL (54-169); LDL/HDL RATIO 2.9 (0.5-3.0); TOTAL PROTEIN 7.7 g/dL (6.4-8.2); TRIGLYCERIDES 79 mg/dL (50-200); VLDL CHOLESTEROL 16 mg/dL (0-25)
== END | disposition home or self-care (01) ==
LOC: LAB 07:39
PROVIDERS: ATTEND Nurse Practitioner Family
DX: Z12.5 Encounter for screening for malignant neoplasm of prostate (principal); E11.9 Type 2 diabetes mellitus without complications; E78.5 Hyperlipidemia, unspecified; I10 Essential (primary) hypertension; Z83.3 Family history of diabetes mellitus
CPT/HCPCS: 36415; 80053; 80061; 82043; 84153; 85025

== ENCOUNTER → 2019-10-17 | Outpatient (CLI) | payer OTHER ==
[2019-10-17 11:00] LABS: ALBUMIN 3.8 g/dL (3.4-5.0); ANION GAP 7 mmol/L (5-15); CALCIUM 9.1 mg/dL (8.5-10.1); CHLORIDE 107 mmol/L (98-107); CREATININE 1.02 mg/dL (0.7-1.3)
[2019-10-17 11:02] LABS: ALANINE AMINOTRANSFERASE 19 U/L (12-78); ALKALINE PHOSPHATASE 86 U/L (45-117); BILIRUBIN,TOTAL 0.7 mg/dL (0.2-1.0); TOTAL PROTEIN 7.6 g/dL (6.4-8.2)
== END | disposition home or self-care (01) ==
LOC: LAB 10:35
PROVIDERS: ATTEND Nurse Practitioner Family
DX: E11.9 Type 2 diabetes mellitus without complications (principal)
CPT/HCPCS: 36415; 80053; 83036

== ENCOUNTER 2020-04-21 18:31 | Emergency (ER) | payer OTHER ==
[~2020-04-21] VITALS: Ht 180.3 cm; Wt 80.0 kg
[2020-04-21] MEDS ORDERED: ALBUTEROL SULFATE 2.5 MG/3 ML ONE (19:26)
[2020-04-21 19:30] LABS: BASOPHILS # (AUTO) 0.06 x10^3/uL (0-0.1); BASOPHILS % (AUTO) 1 % (0-1); EOSINOPHILS # (AUTO) 1.09 x10^3/uL (0-0.4); EOSINOPHILS % (AUTO) 10 % (1-7); LYMPHOCYTES # (AUTO) 2.12 x10^3/uL (1-3.4); LYMPHOCYTES % (AUTO) 19 % (22-44); MD NO; MEAN CORPUSCULAR HEMOGLOBIN 32.5 pg (27.5-34.5); MEAN CORPUSCULAR HGB CONC 33.4 g/dL (33.2-36.2); MEAN PLATELET VOLUME 7.6 fL (7.4-10.4); MONOCYTES % (AUTO) 10 % (2-9); NEUTROPHILS # (AUTO) 6.88 x10^3/uL (1.8-6.8); NEUTROPHILS % (AUTO) 61 % (42-75); PLATELET COUNT 383 x10^3/uL (130-400); RED BLOOD COUNT 4.32 x10^6/uL (4.38-5.82); RED CELL DISTRIBUTION WIDTH 14.4 % (9.4-14.8)
[2020-04-21] MEDS ORDERED: ALBUTEROL SULFATE 2.5 MG/3 ML NPPB ONE (19:30)
[2020-04-21 19:40] LABS: ALBUMIN 3.9 g/dL (3.4-5.0); ANION GAP 6 mmol/L (5-15); CALCIUM 9.2 mg/dL (8.5-10.1); CHLORIDE 110 mmol/L (98-107); CREATININE 1.15 mg/dL (0.7-1.3)
[2020-04-21 19:43] LABS: TROPONIN I < 0.015 ng/mL (0.000-0.045)
--- NOTE | 2020-04-21 19:58 | NUR ---
PT WAS MEDICATED PER ORDERS AND ALBUTEROL NEB GIVEN. HE STATES NEB TX IS EFFECTIVE.
[2020-04-21 20:10] VITALS: BP 128/62
--- NOTE | 2020-04-21 20:31 | NUR ---
ERP WAS IN FOR RECHECK. PT STATES HE FEELS BETTER, FEELS READY TO GO HOME. D/C INSTRUCTIONS, MEDS & F/U APPT RV'WD WITH PT, HE VERBALIZES UNDERSTANDING. INSTRUCTED PT TO RETURN FOR ANY WORSENING OR CONCERNING SYMPTOMS. RX GIVEN X1. PT AMBULATED OUT OF ED WITHOUT DIFFICULTY.
== END 2020-04-21 20:32 | disposition home or self-care (01) ==
LOC: ED 19:11
DX: J44.1 Chronic obstructive pulmonary disease with (acute) exacerbation (principal); R06.02 Shortness of breath; R05 Cough; R00.0 Tachycardia, unspecified; E11.9 Type 2 diabetes mellitus without complications; Z87.891 Personal history of nicotine dependence
CPT/HCPCS: 36415; 71045; 80048; 82040; 84484; 85025; 93005; 94640; 99285; J7512; J7613

== ENCOUNTER → 2020-10-17 | Outpatient (CLI) | payer OTHER ==
[2020-10-17 10:19] LABS: BASOPHILS % (AUTO) 1 % (0-1); EOSINOPHILS % (AUTO) 2 % (1-7); LYMPHOCYTES % (AUTO) 21 % (22-44); MEAN CORPUSCULAR HEMOGLOBIN 32.3 pg (27.5-34.5); MEAN CORPUSCULAR HGB CONC 33.6 g/dL (33.2-36.2); MEAN PLATELET VOLUME 7.4 fL (7.4-10.4); MONOCYTES % (AUTO) 11 % (2-9); NEUTROPHILS % (AUTO) 66 % (42-75); PLATELET COUNT 394 x10^3/uL (130-400); RED BLOOD COUNT 4.68 x10^6/uL (4.38-5.82); RED CELL DISTRIBUTION WIDTH 13.7 % (9.4-14.8)
[2020-10-17 10:20] LABS: MD NO
[2020-10-17 10:31] LABS: ALANINE AMINOTRANSFERASE 25 U/L (12-78); ALBUMIN 3.8 g/dL (3.4-5.0); ANION GAP 5 mmol/L (5-15); CALCIUM 9.3 mg/dL (8.5-10.1); CHLORIDE 106 mmol/L (98-107); CREATININE 1.15 mg/dL (0.7-1.3)
[2020-10-17 10:36] LABS: ALKALINE PHOSPHATASE 162 U/L (45-117); BILIRUBIN,TOTAL 0.4 mg/dL (0.2-1.0); CHOLESTEROL, TOTAL 158 mg/dL (140-239); HDL CHOL % 25 % (26-37); HDL CHOLESTEROL (DIRECT) 40 mg/dL (40-60); LDL CHOLESTEROL,CALCULATED 99 mg/dL (54-169); LDL/HDL RATIO 2.5 (0.5-3.0); TOTAL PROTEIN 7.6 g/dL (6.4-8.2); TRIGLYCERIDES 97 mg/dL (50-200); VLDL CHOLESTEROL 19 mg/dL (0-25)
== END | disposition home or self-care (01) ==
LOC: LAB 09:53
PROVIDERS: ATTEND Nurse Practitioner Family
DX: Z12.5 Encounter for screening for malignant neoplasm of prostate (principal); E78.5 Hyperlipidemia, unspecified; E11.9 Type 2 diabetes mellitus without complications; E55.9 Vitamin D deficiency, unspecified; Z79.899 Other long term (current) drug therapy
CPT/HCPCS: 36415; 80053; 80061; 82043; 82306; 84153; 85025; G0103